=== PATIENT | male | born 1975 | race Two or more races ===

== ENCOUNTER 2018-05-06 09:41 | Emergency (ER) | payer OTHER ==
[2018-05-06] MEDS: IBUPROFEN 800 MG TAB PO (10:27)
== END 2018-05-06 11:40 | disposition home or self-care (01) ==
LOC: E/R 09:41
DX: R07.9 Chest pain, unspecified (principal); Z87.891 Personal history of nicotine dependence
CPT/HCPCS: 71045; 93005; 99284-25

== ENCOUNTER 2019-01-27 13:25 | Emergency (ER) | payer OTHER ==
[2019-01-27] MEDS: LIDOCAINE 1% (MDV) 20 ML INJ SC (14:16)
== END 2019-01-27 15:46 | disposition home or self-care (01) ==
LOC: FTE 13:25
DX: S61.411A Laceration without foreign body of right hand, initial encounter (principal); F17.210 Nicotine dependence, cigarettes, uncomplicated; W25.XXXA Contact with sharp glass, initial encounter; Y92.9 Unspecified place or not applicable
CPT/HCPCS: 12002; 73130-RT; 99283-25